=== PATIENT | female | born 1990 | race Caucasian/White ===

== ENCOUNTER 2024-07-23 21:41 | Inpatient (IN) | payer MEDICAID ==
[~2024-07-23] VITALS: Ht 172.7 cm; Wt 97.5 kg
[2024-07-23] MEDS ORDERED: LEVO25TA9 PO (21:56)
[2024-07-23 22:11] LABS: BASOPHILS % (AUTO) 0.9 % (0.0-2.0); EOSINOPHILS % (AUTO) 0.6 % (1.0-6.0); HEMATOCRIT 45.5 % (36-46); HEMOGLOBIN 15.2 g/dL (12.0-16.0); LYMPHOCYTES # (AUTO) 2.3 K/uL (1.0-4.8); LYMPHOCYTES % (AUTO) 25.8 % (22.0-44.0); MEAN CORPUSCULAR HEMOGLOBIN 30.8 pg (26.0-34.0); MEAN CORPUSCULAR HGB CONC 33.4 G/dL (31.0-37.0); MEAN CORPUSCULAR VOLUME 92 fL (80-100); MONOCYTES # (AUTO) 0.6 K/uL (0.1-1.0); MONOCYTES % (AUTO) 6.5 % (2.0-9.0); NEUTROPHILS % (AUTO) 66.2 % (40.0-70.0); PLATELET COUNT (AUTO) 267 K/uL (150-450); RED BLOOD CELL COUNT(AUTO) 4.93 MIL/uL (4.00-5.20); RED CELL DISTRIBUTION WIDTH 16.2 % (11.5-14.5); WHITE BLOOD COUNT (AUTO) 9.1 K/uL (4.5-11.0)
[2024-07-23 22:18] LABS: COVID AG,FIA SOURCE NASAL SWAB
[2024-07-23 22:22] LABS: APPEARANCE,URINE HAZY (CLEAR); BILIRUBIN,URINE NEGATIVE (NEGATIVE); COLOR,URINE YELLOW (YELLOW); GLUCOSE, URINE (UA) NEGATIVE (NEGATIVE); KETONES,URINE TRACE mg/dL (NEGATIVE); LEUKOCYTE ESTERASE ,URINE NEGATIVE (NEGATIVE); NITRATE,URINE NEGATIVE (NEGATIVE); OCCULT BLOOD,URINE NEGATIVE (NEGATIVE); PROTEIN,URINE TRACE mg/dL (NEGATIVE); SPECIFIC GRAVITIY, URINE 1.013 (1.003-1.030); UROBILINOGEN,URINE <=1.0 mg/dL (<=1.0)
[2024-07-23 22:22] LABS: ALCOHOL, BLOOD (SERUM) 267 mg/dL (0-10); ANION GAP 13 mmol/L (8-16); CALCIUM, TOTAL 8.6 mg/dL (8.8-10.5); CARBON DIOXIDE 28 mmol/L (22-29); CHLORIDE 102 mmol/L (98-107); CREATININE 1.03 mg/dL (0.60-1.30); GLOMERULAR FILTR. RATE CALC > 60 mL/min (>60); GLUCOSE,RANDOM 99 mg/dL (70-110); POTASSIUM 3.4 mmol/L (3.5-5.1); SODIUM SERUM 143 mmol/L (136-145); UREA NITROGEN, BLOOD 9 mg/dL (7-18)
[2024-07-23 22:31] LABS: AMPHET/METH SCREEN,URINE NEGATIVE (NEGATIVE); BARBITURATE SCREEN, URINE NEGATIVE (NEGATIVE); BENZODIAZEPINES SCREEN,URINE NEGATIVE (NEGATIVE); CANNABINOID SCREEN,URINE NEGATIVE (NEGATIVE); COCAINE SCREEN,URINE NEGATIVE (NEGATIVE); METHADONE SCREEN, URINE NEGATIVE (NEGATIVE); OPIATE SCREEN,URINE NEGATIVE (NEGATIVE); PHENCYCLIDINE SCREEN,URINE NEGATIVE (NEGATIVE)
[2024-07-23 22:36] LABS: ALCOHOL, URINE DRUG SCREEN POSITIVE (NEGATIVE)
[2024-07-23 22:39] LABS: SARS-COV2 (COVID) ANTIGEN,FIA Negative (Negative)
[2024-07-23] MEDS: NICOTINE 14 MG/24 HOUR PATCH TD ONE (22:59)
[2024-07-24] VITALS (9 sets, daily range): BP systolic 128–155; BP diastolic 64–89; PULSE 88–111; RESP 17–18; TEMP 96.7–98.2; O2SAT 95–99
[2024-07-24] MEDS: LORazepam 2 MG TABLET PO ONE (01:05)
[2024-07-24] MEDS: SODIUM CHLORIDE 0.9% 1,000 ML IV ONE (01:34)
[2024-07-24 01:41] LABS: THYROID STIMULATING HORMONE 3.81 uIU/mL (0.36-3.74)
[2024-07-24] MEDS: POTASSIUM CHLORIDE 20 MEQ ER TABLET PO ONE (01:59)
[2024-07-24] MEDS ORDERED: HALOPERIDOL 5 MG TABLET PO PRN (02:00)
[2024-07-24] MEDS: LORazepam 2 MG TABLET PO PRN (03:58)
[2024-07-24] MEDS: INFLUENZA VIRUS VACCINE TVS (6MO+) 2024-25/PF 45 MCG/0.5 ML SYRINGE IM. ONE (05:45)
[2024-07-24] MEDS ORDERED: LOPERAMIDE HCL 2 MG CAPSULE PO PRN ×2 (11:15)
[2024-07-24] MEDS ORDERED: MAGNESIUM HYDROXIDE SUSPENSION 30 ML UDCUP PO PRN (11:15)
[2024-07-24] MEDS ORDERED: TUBERCULIN, PURIFIED PROTEIN DERIVATIVE 5 TU/0.1 ML SYRINGE ID ONE (11:15)
[2024-07-24] MEDS ORDERED: GuaiFENesin/D-METHORPHAN [SUGAR-FREE] 200-20MG/10 ML SYRUP UDCUP PO PRN (11:15)
[2024-07-24] MEDS ORDERED: MAG HYDROX/ALUMINUM HYD/SIMETH ES 30 ML SUSPENSION UDCUP PO PRN (11:15)
[2024-07-24] MEDS ORDERED: PROMETHAZINE HCL 25 MG TABLET PO PRN (11:15)
[2024-07-24] MEDS ORDERED: ACETAMINOPHEN 325 MG TABLET PO PRN (11:15)
[2024-07-24] MEDS ORDERED: HydrOXYzine PAMOATE 50 MG CAPSULE PO PRN (11:15)
[2024-07-24] MEDS ORDERED: LEVO50TA11 PO (11:18)
[2024-07-24] MEDS: CYANOCOBALAMIN 1,000 MCG/ML VIAL IM ONE (13:23)
[2024-07-24] MEDS: GABAPENTIN 300 MG CAPSULE PO SCH (13:31)
[2024-07-24] MEDS: DIAZEPAM 10 MG TABLET PO PRN (13:32)
[2024-07-24] MEDS: NICOTINE POLACRILEX 2 MG LOZENGE PO PRN (14:53)
[2024-07-24] MEDS: THIAMINE 100 MG TABLET PO SCH (16:19)
[2024-07-24] MEDS: MELATONIN 5 MG TABLET PO SCH (20:30)
[2024-07-24] MEDS: MIRTAZAPINE 15 MG TABLET PO SCH (20:31)
[2024-07-25] VITALS (7 sets, daily range): BP systolic 132–138; BP diastolic 78–86; PULSE 62–91; RESP 16–18; TEMP 97.5–97.8; O2SAT 96–99
[2024-07-25] MEDS ORDERED: DIAZEPAM 10 MG TABLET PO PRN (07:00)
[2024-07-25] MEDS: DIAZEPAM 10 MG TABLET PO SCH (08:14)
[2024-07-25] MEDS: MULTIVITAMINS WITH MINERALS, THERAPEUTIC TABLET PO SCH (08:14)
[2024-07-25] MEDS: OMEGA-3/DHA/EPA/FISH OIL 1,000 MG CAPSULE PO SCH (08:14)
[2024-07-25] MEDS: FOLIC ACID 1 MG TABLET PO SCH (08:15)
[2024-07-25] MEDS: NALTREXONE HCL 50 MG TABLET PO SCH (08:15)
[2024-07-25 09:05] LABS: CHOL/HDL RATIO 1.4 (3.9-5.7); FREE T4 (FREE THYROXINE) 0.79 ng/dL (0.76-1.46); THYROID STIMULATING HORMONE 7.98 uIU/mL (0.36-3.74)
[2024-07-25 10:11] LABS: HEMOGLOBIN A1C 4.8 % (3.8-5.6)
[2024-07-25] MEDS: ZOLPIDEM TARTRATE 10 MG TABLET PO PRN (20:12)
[2024-07-26 08:40] VITALS: BP 115/71; PULSE 65; RESP 18; TEMP 97.9; O2SAT 96
[2024-07-26 14:01] VITALS: BP 128/80; PULSE 84; RESP 18; TEMP 98.5; O2SAT 98
[2024-07-26 15:57] VITALS: BP 145/90
[2024-07-26 20:14] VITALS: BP 133/90; PULSE 96; RESP 16; TEMP 97.7; O2SAT 98
[2024-07-26] MEDS: GABAPENTIN 400 MG CAPSULE PO SCH (20:15)
[2024-07-26] MEDS: MIRTAZAPINE 15 MG TABLET PO SCH (20:15)
[2024-07-26 21:40] VITALS: BP 133/90; PULSE 96; RESP 16; TEMP 97.7; O2SAT 98
[2024-07-27] MEDS: LEVOTHYROXINE SODIUM 50 MCG TABLET PO SCH (06:13)
[2024-07-27] MEDS ORDERED: DIAZEPAM 5 MG TABLET PO PRN (07:00)
[2024-07-27 08:30] VITALS: BP 112/60; PULSE 65; RESP 18; TEMP 97.7; O2SAT 95
[2024-07-27] MEDS: DIAZEPAM 5 MG TABLET PO SCH (09:28)
[2024-07-27] MEDS ORDERED: NALT50TA33 PO (13:38)
[2024-07-27] MEDS ORDERED: OMEG100033 PO (13:38)
[2024-07-27] MEDS ORDERED: MIRT-89 PO (13:38)
[2024-07-27] MEDS ORDERED: GABA-1201 PO (13:38)
[2024-07-28] MEDS ORDERED: DIAZEPAM 5 MG TABLET PO PRN (07:00)
== END 2024-07-27 17:02 | disposition home or self-care (01) | DRG 751 ==
LOC: EMS 21:41 → B2S 07-24 01:58
PROVIDERS: ADMIT Psychiatry & Neurology Psychiatry; ATTEND Psychiatry & Neurology Psychiatry
PROC: GZHZZZZ Group Psychotherapy (ICD-10-PCS; principal; 2024-07-25)
PROC: GZ58ZZZ Individual Psychotherapy, Cognitive-Behavioral (ICD-10-PCS; 2024-07-25)
DX: F33.2 Major depressive disorder, recurrent severe without psychotic features (principal); E03.9 Hypothyroidism, unspecified; F17.210 Nicotine dependence, cigarettes, uncomplicated; F10.229 Alcohol dependence with intoxication, unspecified; Z20.822 Contact with and (suspected) exposure to COVID-19; F41.9 Anxiety disorder, unspecified; J44.9 Chronic obstructive pulmonary disease, unspecified; Z59.02 Unsheltered homelessness; Z88.8 Allergy status to other drugs, medicaments and biological substances
CPT/HCPCS: 71045; 80048; 80061; 80307; 81003; 83036; 84132; 84439; 84443; 84703; 85025; 86592; 93005; 99285; G0480; J3420; 36415-L1; 36415-TC